=== PATIENT | male | born 1965 | race Two or more races ===

== ENCOUNTER 2018-06-25 16:37 | Emergency (ER) | payer OTHER ==
[~2018-06-25] VITALS: Ht 172.7 cm; Wt 71.7 kg
[2018-06-25] MEDS ORDERED: ASPIR 8181 MG ORAL (16:46)
[2018-06-25] MEDS ORDERED: AMLODIPINE BESYL5 MG ORAL (16:46)
[2018-06-25] MEDS ORDERED: ATORVASTATIN CA20 MG ORAL (16:46)
[2018-06-25] MEDS ORDERED: LOSARTAN POTASS25 MG ORAL (16:46)
[2018-06-25] MEDS ORDERED: Acetaminophen 500mg (ES) tab ORAL ONE (17:00)
--- NOTE | 2018-06-25 17:40 | Emergency Room Report ---
History of Present Illness General Chief Complaint: Lower Extremity Injury Source: Patient, Medical Record Present Illness HPI Patient is a 53-year-old male who presents today with right knee pain that began on 06/08/2018. Patient states he walks several miles per day for his job and he began having knee pain of the results. He recently saw a orthopedic surgeon who performed MRI, which revealed a knee effusion. He's been followed by Ortho and presents today requesting an note to return to work. He states pain is currently 5 out of 10 in severity, no medication has been taken. He denies any numbness, tingling, loss of sensation or associated symptoms. Allergies: Coded Allergies: No Known Allergies (Unverified , 06/25/18) Patient History Reviewed Nursing Documentation: PMH: Agreed; PSxH: Agreed Nursing Documentation-PMH Past Medical History: No History, Except For Hx Cardiac Problems: No - 7 bypass surgery Review of Systems Musculoskeletal: Reports: joint pain All Other Systems: negative except mentioned in HPI Physical Exam Vital Signs Date Time Temp Pulse Resp B/P (MAP) Pulse Ox O2 Delivery O2 Flow Rate FiO2 06/25/18 16:41 98.2 63 18 130/74 97 Room Air Sp02 EP Interpretation: reviewed, normal General Appearance: no apparent distress, alert, GCS 15, non-toxic Head: normocephalic, atraumatic Eyes: bilateral eye normal inspection, bilateral eye PERRL ENT: hearing grossly normal, normal pharynx, no angioedema, normal voice Neck: full range of motion, supple/symm/no masses Respiratory: chest non-tender, lungs clear, normal breath sounds, speaking full sentences Cardiovascular #1: regular rate, rhythm, no edema Cardiovascular #2: 2+ carotid (R), 2+ carotid (L), 2+ radial (R), 2+ radial (L) , 2+ dorsalis pedis (R), 2+ dorsalis pedis (L) Gastrointestinal: normal bowel sounds, non tender, soft, non-distended, no guarding, no rebound Rectal: deferred Genitourinary: normal inspection, no CVA tenderness Musculoskeletal: gait/station normal, normal range of motion, calf tenderness, other - TTP right patella Neurologic: alert, oriented x3, responsive, motor strength/tone normal, sensory intact, speech normal Psychiatric: judgement/insight normal, memory normal, mood/affect normal, no suicidal/homicidal ideation Reflexes: 3+ bicep (R), 3+ bicep (L), 3+ tricep (R), 3+ tricep (L), 3+ knee (R) , 3+ knee (L) Skin: normal color, no rash, warm/dry, well hydrated Lymphatic: no adenopathy Medical Decision Making PA Attestation supervising physician is Diagnostic Impression: Primary Impression: Right knee sprain ER Course Patient presents with complaint of right knee pain. X-rays within normal limits , no evidence of fracture. He is placed in Abraham wrap, neurovascularly intact before and after Abraham wrap is placed. He is given Tylenol improvement of pain on reevaluation. He states he has an orthopedic surgeon that he is being monitored by and states he will schedule follow-up. He is allowed to return to work with modifications including no heavy lifting, no twisting, no bending or no heavy impact exercises. Given return precautions. Patient was transplanted is agreeable. Chest X-Ray Diagnostic Results Chest X-Ray Diagnostic Results : Chest X-Ray Ordered: Yes Other X-Ray Diagnostic Results Other X-Ray Diagnostic Results : X-Ray ordered: right knee # of Views/Limited Vs Complete: 4 View Indication: Pain EP Interpretation: Yes PA Xray: Interpretation reviewed, by supervising MD, and agrees with findings. Interpretation: no dislocation, no soft tissue swelling, no fractures Impression: No acute disease Electronically Signed by: jacqueline andujar PA-C Last Vital Signs Date Time Temp Pulse Resp B/P (MAP) Pulse Ox O2 Delivery O2 Flow Rate FiO2 06/25/18 16:41 98.2 63 18 130/74 97 Room Air Status: improved Disposition: HOME, SELF-CARE Condition: Stable Departure Forms: Return to Work Return to Work in (Days): 1 Patient Instructions: Knee Sprain Jacqueline Andujar Jun 25, 2018 17:40
[2018-06-25 18:06] VITALS: BP 130/74
--- NOTE | 2018-06-26 11:28 | Diagnostic Imaging Report ---
Indication: Pain Knee pain/trauma 3 views of the right knee were obtained. Findings: No acute fracture, malalignment, or joint effusion are identified. Joint space is relatively well-maintained. Small marginal spurs are noted. Surgical clips noted about the knee. Impression: Negative for acute findings. Mild arthrosis
== END 2018-06-25 18:07 | disposition home or self-care (01) ==
LOC: EMR 17:16
DX: S83.91XA Sprain of unspecified site of right knee, initial encounter (principal); X50.9XXA Other and unspecified overexertion or strenuous movements or postures, initial encounter; Y93.01 Activity, walking, marching and hiking; Y92.89 Other specified places as the place of occurrence of the external cause; Y99.0 Civilian activity done for income or pay
CPT/HCPCS: 99283